=== PATIENT | male | born 1995 | race Caucasian/White ===

== ENCOUNTER 2021-05-27 14:17 | Emergency (ER) | payer OTHER ==
[~2021-05-27] VITALS: Ht 177.8 cm; Wt 88.8 kg
[2021-05-27 16:55] LABS: HEMATOCRIT 39.4 % (42.0-52.0); MEAN CORPUSCULAR HEMOGLOBIN 29.7 pg (27.0-33.0); MEAN CORPUSCULAR VOLUME 90.2 fl (80.0-96.0); PLATELET COUNT, AUTOMATED 284 10^3/uL (150-450); RED BLOOD COUNT 4.37 10^6/uL (4.30-6.10)
[2021-05-27 17:32] LABS: BLOOD UREA NITROGEN 11 MG/DL (7-18); CALCIUM LEVEL 9.5 MG/DL (8.5-10.1); CARBON DIOXIDE LEVEL 30 MEQ/L (21-32); CHLORIDE LEVEL 102 MEQ/L (98-107); CPK CREATINE PHOSPHOKINASE 353 U/L (39-308); CREATININE FOR GFR 1.15 MG/DL (0.70-1.30); GLOMERULAR FILTRATION RATE > 60.0 (>60); GLUCOSE, FASTING 121 MG/DL (70-100); MAGNESIUM LEVEL 2.5 MG/DL (1.8-2.4); POTASSIUM SERUM 4.4 MEQ/L (3.5-5.1); SODIUM LEVEL 139 MEQ/L (136-145)
[2021-05-27] MEDS ORDERED: METOCLOPRAMIDE INJ 10MG/2ML VIAL (J2765 PER 1) IV ONE (23:55)
[2021-05-27] MEDS ORDERED: NS 1,000 ML IV ONE (23:55)
[2021-05-27] MEDS ORDERED: KETOROLAC 30 MG/ML 1ML VIAL IV ONE (23:55)
--- NOTE | 2021-05-28 00:34 | REPVR ---
PROCEDURE INFORMATION: Exam: CT Head Without Contrast Exam date and time: 05/27/2021 11:55 PM Age: 25 years old Clinical indication: Other: Whole body right numbness; Additional info: Numbness whole R side body TECHNIQUE: Imaging protocol: Computed tomography of the head without contrast. Radiation optimization: All CT scans at this facility use at least one of these dose optimization techniques: automated exposure control; mA and/or kV adjustment per patient size (includes targeted exams where dose is matched to clinical indication); or iterative reconstruction. COMPARISON: No relevant prior studies available. FINDINGS: Brain: No intracranial hemorrhage or extra-axial fluid collection. No evidence of mass effect or midline shift. Barrientos-white matter differentiation is intact. Cerebral ventricles: No ventriculomegaly. Paranasal sinuses: Visualized sinuses are unremarkable. No fluid levels. Mastoid air cells: Unremarkable. Bones/joints: No acute osseus lesion or fracture. Soft tissues: Unremarkable. IMPRESSION: No acute intracranial pathology. Electronically signed by: Kev Cesar On 05/28/2021 00:33:56 AM
--- NOTE | 2021-05-28 04:33 | REPVR ---
PROCEDURE INFORMATION: Exam: MR Head Without Contrast Exam date and time: 05/28/2021 2:05 AM Age: 25 years old Clinical indication: Numbness / parasthesia; Right; Patient HX: Numbness on RT side started yesterday 05/27/21 at 9 am; Additional info: Right sided numbness whole body TECHNIQUE: Imaging protocol: MR of the head without contrast. COMPARISON: CT Head without contrast 05/27/2021 11:58 PM FINDINGS: Brain: No parenchymal mass lesions or signal abnormalities are identified. There is no evidence of intracranial hemorrhage. No abnormal restricted diffusion is identified. Cerebral ventricles: The ventricular system is normal in size and configuration. Bones/joints: No suspicious osseous lesions. No acute fractures. Paranasal sinuses: There is minimal mucoperiosteal thickening in the paranasal sinuses. No fluid levels. Mastoid air cells: The mastoid air cells are clear. Orbital cavity: The orbits appear unremarkable. Soft tissues: No soft tissue swelling is identified. IMPRESSION: Normal appearance of the brain. Electronically signed by: Heather Parks On 05/28/2021 04:33:04 AM
[2021-05-28 05:20] VITALS: BP 112/56
== END 2021-05-28 04:53 | disposition home or self-care (01) ==
LOC: M ED 14:17
DX: R20.2 Paresthesia of skin (principal); Z91.013 Allergy to seafood
CPT/HCPCS: 70450; 70551; 80048; 82550; 83735; 85027; 96374; 96375; 99283; J1885; J2765

== ENCOUNTER 2024-03-08 06:35 | Emergency (ER) | payer OTHER ==
[~2024-03-08] VITALS: Ht 175.3 cm; Wt 93.8 kg
[2024-03-08 11:25] LABS: HEMATOCRIT 38.3 % (42.0-52.0); HEMOGLOBIN 13.3 g/dl (13.5-17.5); MEAN CORPUSCULAR HEMOGLOBIN 30.4 pg (27.0-33.0); MEAN CORPUSCULAR HGB CONC 34.7 g/dl (32.0-36.5); MEAN CORPUSCULAR VOLUME 87.6 fl (80.0-96.0); PLATELET COUNT, AUTOMATED 309 10^3/uL (150-450); RED BLOOD COUNT 4.37 10^6/uL (4.30-6.10); WHITE BLOOD COUNT 8.9 10^3/uL (4.0-10.0)
[2024-03-08 11:53] LABS: ALBUMIN 4.4 G/DL (3.2-5.2); ALKALINE PHOSPHATASE 59 U/L (46-116); ALT/SGPT 21 U/L (7.0-40); AST/SGOT 16 U/L (<34); BILIRUBIN,TOTAL 0.3 MG/DL (0.3-1.2); BLOOD UREA NITROGEN 14 MG/DL (9-23); CALCIUM LEVEL 9.5 MG/DL (8.5-10.1); CARBON DIOXIDE LEVEL 27 MMOL/L (20-31); CHLORIDE LEVEL 107 MMOL/L (98-107); CREATININE FOR GFR 0.98 MG/DL (0.70-1.30); GLOMERULAR FILTRATION RATE > 60.0 (>60); GLUCOSE, FASTING 93 MG/DL (60-100); POTASSIUM SERUM 4.2 MMOL/L (3.5-5.1); SODIUM LEVEL 138 MMOL/L (136-145); TOTAL PROTEIN 7.6 G/DL (5.7-8.2)
[2024-03-08 11:56] LABS: FOLATE 12.89 NG/ML (>5.4); VITAMIN B12 LEVEL 816 PG/ML (211-911)
[2024-03-08 14:53] VITALS: BP 123/79; TEMP 97.5; O2SAT 99
== END 2024-03-08 15:07 | disposition home or self-care (01) ==
LOC: M ED 06:35
DX: R20.2 Paresthesia of skin (principal); G93.0 Cerebral cysts; M54.50 Low back pain, unspecified; F17.200 Nicotine dependence, unspecified, uncomplicated; Z91.013 Allergy to seafood